=== PATIENT | male | born 2000 | race Two or more races ===

== ENCOUNTER 2021-05-28 20:24 | Emergency (ER) | payer OTHER ==
[~2021-05-28] VITALS: Ht 177.8 cm; Wt 95.3 kg
[2021-05-28] MEDS ORDERED: CIPRO500 MG PO (22:44)
== END 2021-05-28 22:48 | disposition home or self-care (01) ==
LOC: ER 20:24
DX: S61.421A Laceration with foreign body of right hand, initial encounter (principal); W45.8XXA Other foreign body or object entering through skin, initial encounter; Y93.89 Activity, other specified; Y92.090 Kitchen in other non-institutional residence as the place of occurrence of the external cause; Y99.8 Other external cause status

== ENCOUNTER 2021-06-04 12:23 | Emergency (ER) | payer OTHER ==
[~2021-06-04] VITALS: Ht 177.8 cm; Wt 95.3 kg
[~2021-06-04 12:23] MED LIST: CIPRO500 MG PO
== END 2021-06-04 15:15 | disposition home or self-care (01) ==
LOC: ER 12:23
DX: Z48.02 Encounter for removal of sutures (principal)